=== PATIENT | female | born 1935 | race Caucasian/White ===

== ENCOUNTER 2017-12-02 14:19 | Inpatient (IN) | payer OTHER, MEDICAID ==
[2017-12-02 14:50] LABS: ADD MAN DIFF? NO
[2017-12-02 14:51] LABS: WHITE BLOOD COUNT 7.5 10^3/ul (4.8-10.8)
[2017-12-02 14:51] LABS: BASOPHIL # 0.1 10^3/ul (0.0-0.1); BASOPHILS % 0.9 % (0.0-2.0); EOSINOPHILS # 0.2 10^3/ul (0.0-0.5); EOSINOPHILS % 2.7 % (0.0-7.0); HEMATOCRIT 39.4 % (37.0-47.0); HEMOGLOBIN 12.7 g/dl (12.0-16.0); LYMPHOCYTES # 1.8 10^3/ul (0.8-2.9); LYMPHOCYTES % 24.1 % (15.0-51.0); MEAN CORPUSCULAR HEMOGLOBIN 28.2 pg (29.0-33.0); MEAN CORPUSCULAR HGB CONC 32.2 g/dl (32.0-37.0); MEAN CORPUSCULAR VOLUME 87.6 fl (82.0-101.0); MEAN PLATELET VOLUME 10.2 fl (7.4-10.4); MONOCYTE # 0.7 10^3/ul (0.3-0.9); MONOCYTES % 9.6 % (0.0-11.0); NEUTROPHIL # 4.7 10^3/ul (1.6-7.5); NEUTROPHILS % 62.4 % (39.0-77.0); PLATELET COUNT 300 10^3/UL (140-415); RED CELL DISTRIBUTION WIDTH 14.7 % (11.5-14.5)
[2017-12-02 15:21] LABS: INR 1.01; PROTIME 13.4 Sec (11.9-14.9)
[2017-12-02 15:22] LABS: PARTIAL THROMBOPLASTIN TIME 29.7 Sec (25.0-35.0)
[2017-12-02] MEDS ORDERED: DILTIAZEM 50 MG INJ IV (15:30)
[2017-12-02] MEDS: DILTIAZEM 50 MG INJ IV ×2 (15:31→16:03)
[2017-12-02 16:17] LABS: ANION GAP 15 (8-16); BLOOD UREA NITROGEN 22 mg/dl (7-20); CALCIUM 9.4 mg/dl (8.4-10.2); CARBON DIOXIDE 27 mmol/L (21-31); CHLORIDE 109 mmol/L (97-110); CREATININE 0.99 mg/dl (0.44-1.00); GLUCOSE 87 mg/dl (70-220); POTASSIUM 4.9 mmol/L (3.5-5.1); SODIUM 146 mmol/L (135-144)
[2017-12-02 16:30] LABS: B-TYPE NATRIURETIC PEPTIDE 6060 PG/ML (0-450); TROPONIN-I < 0.012 ng/ml (0.00-0.12)
[2017-12-02] MEDS: SOD CHLORIDE 0.9% 500 ML IV (16:36)
[2017-12-02 17:04] LABS: URINE PH (Dip) POC 5.5 (5.0-8.5)
[2017-12-02 17:04] LABS: ALANINE AMINOTRANSFERASE 45 IU/L (13-69); ALKALINE PHOSPHATASE 70 IU/L (42-121); ASPARTATE AMINO TRANSFERASE 31 IU/L (15-46); BILIRUBIN,INDIRECT 0.1 mg/dl (0-1.1); BILIRUBIN,TOTAL 0.1 mg/dl (0.2-1.3); TOTAL PROTEIN 7.5 g/dl (6.1-8.1); URINE BLOOD (Dip) POC Trace-intact (NEGATIVE); URINE GLUCOSE (Dip) POC Negative (NEGATIVE); URINE KETONES (Dip) POC Negative (NEGATIVE); URINE LEUKOCYTE EST (Dip) POC Negative (NEGATIVE); URINE NITRITE (Dip) POC Negative (NEGATIVE); URINE TOTAL PROTEIN POC Negative (NEGATIVE)
[2017-12-02] MEDS: ENOXAPARIN 100 MG/ML SYG SC (17:52)
[2017-12-02] MEDS: MAGNESIUM SULFATE 2 GM/50 ML 50 ML IVPB (18:30)
[2017-12-02] MEDS ORDERED: ACETAMINOPHEN 325 MG TAB PO (18:30)
[2017-12-02] MEDS ORDERED: NACL 0.9% 3 ML SYG IV (18:30)
[2017-12-02] MEDS ORDERED: morphine 2 MG INJ IV (18:30)
[2017-12-02] MEDS ORDERED: DOCUSATE SODIUM 100 MG CAP PO (18:30)
[2017-12-02] MEDS ORDERED: HYDROCODONE/APAP (5/325) TAB PO (18:30)
[2017-12-02] MEDS ORDERED: ZOLPIDEM 5 MG TAB PO (18:30)
[2017-12-02] MEDS ORDERED: DILTIAZEM-D5W 125MG/125ML DRIP 125 ML IV (18:30)
[2017-12-02] MEDS ORDERED: ONDANSETRON 4 MG INJ IV (18:30)
[2017-12-02 18:45] LABS: MAGNESIUM 2.3 mg/dl (1.7-2.5)
[2017-12-02] MEDS ORDERED: LEVALBUTEROL (NEB) 0.63 MG/3 ML AMP HHN (19:00)
[2017-12-02] MEDS ORDERED: DILTIAZEM 125 MG in DEXTROSE 5% 100 ML IV (19:00)
[2017-12-02] MEDS ORDERED: METOPROLOL 5 MG INJ IV (20:00)
[2017-12-02] MEDS: DIGOXIN 500 MCG INJ IV (21:51)
[2017-12-02] MEDS: MONTELUKAST 10 MG TAB PO (22:41)
[2017-12-02 22:58] LABS: CREATINE KINASE 94 IU/L (23-200)
[2017-12-02 23:09] LABS: CK INDEX 3.1; CK-MB 2.89 ng/ml (0.0-2.4)
[2017-12-02 23:12] LABS: TROPONIN-I < 0.012 ng/ml (0.00-0.12)
[2017-12-03] MEDS: DILTIAZEM 60 MG TAB PO ×4 (00:30→17:29)
[2017-12-03] MEDS: DIGOXIN 500 MCG INJ IV (01:52)
[2017-12-03 03:10] LABS: CREATINE KINASE 82 IU/L (23-200)
[2017-12-03 03:22] LABS: CK-MB 2.44 ng/ml (0.0-2.4); TROPONIN-I 0.014 ng/ml (0.00-0.12)
[2017-12-03 08:19] LABS: ADD MAN DIFF? NO
[2017-12-03 08:20] LABS: BASOPHIL # 0.1 10^3/ul (0.0-0.1); BASOPHILS % 1.2 % (0.0-2.0); EOSINOPHILS # 0.3 10^3/ul (0.0-0.5); EOSINOPHILS % 4.1 % (0.0-7.0); HEMATOCRIT 39.2 % (37.0-47.0); HEMOGLOBIN 12.6 g/dl (12.0-16.0); LYMPHOCYTES # 1.6 10^3/ul (0.8-2.9); LYMPHOCYTES % 26.9 % (15.0-51.0); MEAN CORPUSCULAR HEMOGLOBIN 27.7 pg (29.0-33.0); MEAN CORPUSCULAR HGB CONC 32.1 g/dl (32.0-37.0); MEAN CORPUSCULAR VOLUME 86.2 fl (82.0-101.0); MEAN PLATELET VOLUME 10.5 fl (7.4-10.4); MONOCYTE # 0.6 10^3/ul (0.3-0.9); MONOCYTES % 9.4 % (0.0-11.0); NEUTROPHIL # 3.5 10^3/ul (1.6-7.5); NEUTROPHILS % 58.2 % (39.0-77.0); PLATELET COUNT 286 10^3/UL (140-415); RED BLOOD COUNT 4.55 10^6/ul (4.20-5.40); RED CELL DISTRIBUTION WIDTH 14.8 % (11.5-14.5)
[2017-12-03 08:20] LABS: WHITE BLOOD COUNT 6.1 10^3/ul (4.8-10.8)
[2017-12-03 09:06] LABS: ANION GAP 12 (8-16); BLOOD UREA NITROGEN 17 mg/dl (7-20); CALCIUM 9.4 mg/dl (8.4-10.2); CARBON DIOXIDE 28 mmol/L (21-31); CHLORIDE 111 mmol/L (97-110); CHOLESTEROL 138 mg/dl (100-200); CREATININE 0.88 mg/dl (0.44-1.00); GLUCOSE 84 mg/dl (70-220); HDL CHOLESTEROL 46 mg/dl (33-92); LDL CHOLESTEROL,CALCULATED 72 mg/dl; MAGNESIUM 2.3 mg/dl (1.7-2.5); PHOSPHORUS 4.8 mg/dl (2.5-4.9); POTASSIUM 4.7 mmol/L (3.5-5.1); SODIUM 146 mmol/L (135-144); TRIGLYCERIDES 99 mg/dl (0-149)
[2017-12-03] MEDS: APIXABAN 5 MG TABLET PO (09:06)
[2017-12-03] MEDS: FAMOTIDINE 20 MG TAB PO (09:06)
[2017-12-03 09:22] LABS: FREE THYROXINE INDEX (Calc) 3.48 ug/ml (0.65-3.89); T3 UPTAKE 31.9 % (23.5-40.5); T4 (THYROXINE) 10.9 ug/dl (5.5-11.0)
[2017-12-03 09:32] LABS: HEMOGLOBIN A1C 5.5 % (0-5.9)
== END 2017-12-03 18:40 | disposition home or self-care (01) | DRG 309 ==
LOC: E/R 14:19 → MS4 16:57
DX: I48.91 Unspecified atrial fibrillation (principal); E87.0 Hyperosmolality and hypernatremia; J44.9 Chronic obstructive pulmonary disease, unspecified; R07.9 Chest pain, unspecified; R42 Dizziness and giddiness; R53.1 Weakness
CPT/HCPCS: 71045; 80048; 80061; 80076; 81003; 82550; 82553; 83036; 83735; 83880; 84100; 84436; 84443; 84479; 84484; 85025; 85610; 85730; 93005; 93306